=== PATIENT | male | born 1995 | race American Indian/Alaskan Native ===

== ENCOUNTER 2018-08-09 17:12 | Emergency (ER) | payer SELFPAY ==
[2018-08-09 18:55] LABS: Hematocrit 45.4 % (35.5-45.6); Hemoglobin 15.3 gm/dl (11.8-15.2); Mean Corpuscular HGB Conc 34 % (32-34); Mean Corpuscular Volume 88 fl (84-94); Platelet Count 237 K/mm3 (140-440); Red Blood Count 5.18 M/mm3 (3.65-5.03); Red Cell Distribution Width 13.6 % (13.2-15.2)
[2018-08-09 19:01] LABS: Amphetamine Screen,Urine PRESUMPTIVE NEGATIVE; Benzodiazepines Screen,Urine PRESUMPTIVE NEGATIVE; Cannabinoid Screen,Urine PRESUMPTIVE NEGATIVE; Cocaine Screen,Urine PRESUMPTIVE NEGATIVE; Methadone Screen,Urine PRESUMPTIVE NEGATIVE; Opiate Screen,Urine PRESUMPTIVE NEGATIVE
[2018-08-09 19:06] LABS: INR 0.9 (0.87-1.13)
[2018-08-09 19:17] LABS: BUN/Creatinine Ratio 11; Blood Urea Nitrogen 9 mg/dL (9-20); Calcium 9.4 mg/dL (8.4-10.2); Hemolysis Index 16
[2018-08-09] MEDS ORDERED: ATIVAN IV STA (22:13)
[2018-08-09] MEDS ORDERED: TORADOL IV ONE (22:13)
[2018-08-09] MEDS ORDERED: PEPCID IV ONE (22:13)
[2018-08-09] MEDS ORDERED: NACL 0.9% 1000 ML 1,000 ML IV ONE (22:13)
--- NOTE | 2018-08-09 22:14 | Emergency Department Report ---
ED Chest Pain HPI - General Chief Complaint: Chest Pain Stated Complaint: PALPS Time Seen by Provider: 08/09/18 20:48 Source: patient, EMS (ems notes not available at time of chart dictation), RN notes reviewed Mode of arrival: Stretcher Limitations: No Limitations - History of Present Illness Initial Comments: This is a 23-year-old gentleman, who is not known to this provider previously. The patient believes he may have a history of anxiety, but reports that he does not carry a formal diagnosis of anxiety per say. He does not take any long-term chronic prescription medications. Today, the patient presents to the ER with a complaint of central chest pressure, now resolved, shortness of breath, now resolved, feeling like his heart rate was "racing", and reporting that his Smart phone device/ fit bit, documented tachycardia, elevated heart rate, with rates in the 140s, 150s. This was earlier on today. This was right after he consumed some alcohol recreationally. Shortly after consuming the alcohol, he felt tingling on his bilateral fingertips, now resolved, and "it felt like my stomach was going to fall out." All of the symptoms are now basically resolved. He currently denies headache, neck pain, denies chest pain, denies current shortness of breath, denies abdominal pain, denies focal extremity weakness or numbness. He has no family history of cardiac disease that he is aware of, and he has no family history of pulmonary embolus or DVT. Furthermore, he denies a history of DVT or pulmonary embolus risk factors. His symptoms were intermittent, did not have any exacerbating or relieving factors, chest discomfort was described as tightness in nature, and he reports no radiation that he can recall. MD Complaint: chest pain, other -: Gradual Onset: other Pain Location: substernal, left chest, right chest Pain Radiation: none Severity scale (0 -10): 6 Quality: aching Consistency: now resolved Improves With: nothing Worsens With: nothing Treatments Prior to Arrival: nitroglycerin Aspirin use within the Past 7 Days: (0) No - Related Data On Oral Contraceptives: No Allergies Allergy/AdvReac Type Severity Reaction Status Date / Time No Known Allergies Allergy Unverified 08/09/18 18:41 Heart Score - HEART Score History: Slightly suspicious EKG: Normal Age: < 45 Risk factors: No known risk factors Troponin: < normal limit HEART Score: 0 - Critical Actions Critical Actions: 0-3 pts:0.9-1.7%risk of adverse cardiac event.Candidate for discharge ED Review of Systems ROS: Stated complaint: PALPS Other details as noted in HPI Constitutional: weakness. denies: fever, malaise Eyes: denies: vision change ENT: denies: epistaxis Respiratory: shortness of breath Cardiovascular: chest pain, palpitations Gastrointestinal: denies: vomiting Genitourinary: denies: urgency Musculoskeletal: denies: back pain Skin: denies: lesions Neurological: denies: headache Psychiatric: anxiety ED Past Medical Hx - Past Medical History Previous Medical History?: Yes Additional medical history: PVC - Surgical History Past Surgical History?: No - Social History Smoking Status: Current Every Day Smoker Substance Use Type: Alcohol ED Physical Exam - General Limitations: No Limitations General appearance: alert, anxious, obese - Head Head exam: Present: atraumatic, normocephalic - Eye Eye exam: Present: normal appearance, PERRL, EOMI, other (visual acuity intact to finger counting, color perception, reading at a close distance). Absent: nystagmus - ENT ENT exam: Present: normal exam, normal orophraynx, mucous membranes moist, normal external ear exam - Neck Neck exam: Present: normal inspection, full ROM. Absent: tenderness, meningismus - Respiratory Respiratory exam: Present: normal lung sounds bilaterally. Absent: respiratory distress - Cardiovascular Cardiovascular Exam: Present: normal rhythm, tachycardia, normal heart sounds. Absent: systolic murmur, diastolic murmur, rubs, gallop - GI/Abdominal GI/Abdominal exam: Present: soft. Absent: distended, tenderness, guarding, rebound, rigid, pulsatile mass - Rectal Rectal exam: Present: deferred - Extremities Exam Extremities exam: Present: normal inspection - Back Exam Back exam: Present: normal inspection, full ROM. Absent: paraspinal tenderness, vertebral tenderness - Neurological Exam Neurological exam: Present: alert, oriented X3, CN II-XII intact, normal gait, other (Extraocular movements intact. Tongue midline. No facial droop. Facial sensation intact to light touch in the V1, V2, V3 distribution bilaterally. 5 and 5 strength in 4 extremities.. Sensation is intact to light touch in 4 extremities.). Absent: motor sensory deficit - Psychiatric Psychiatric exam: Present: anxious - Skin Skin exam: Present: warm, dry, intact, normal color. Absent: rash ED Course Vital Signs 08/09/18 08/09/18 08/09/18 18:08 18:15 18:20 Temperature Pulse Rate 110 H 97 H 108 H Respiratory 16 14 Rate Blood Pressure 118/76 127/82 127/82 Blood Pressure [Right] O2 Sat by Pulse 97 96 Oximetry 08/09/18 08/09/18 08/09/18 18:30 18:31 19:00 Temperature Pulse Rate 104 H 100 H 96 H Respiratory 13 20 13 Rate Blood Pressure 127/82 127/82 130/71 Blood Pressure [Right] O2 Sat by Pulse 96 97 99 Oximetry 08/09/18 08/09/18 08/09/18 19:18 19:24 19:31 Temperature Pulse Rate 100 H 100 H Respiratory 20 22 Rate Blood Pressure 127/82 116/56 Blood Pressure [Right] O2 Sat by Pulse 98 97 97 Oximetry 08/09/18 08/09/18 08/09/18 19:46 20:00 20:31 Temperature Pulse Rate 98 H 95 H 85 Respiratory 13 18 14 Rate Blood Pressure 107/72 116/56 Blood Pressure 116/56 [Right] O2 Sat by Pulse 98 96 100 Oximetry 08/09/18 08/09/18 08/09/18 21:00 21:31 22:37 Temperature Pulse Rate 82 82 83 Respiratory 20 21 18 Rate Blood Pressure 104/57 104/57 125/79 Blood Pressure [Right] O2 Sat by Pulse 100 100 95 Oximetry 08/09/18 08/09/18 08/09/18 22:46 22:58 23:31 Temperature 98.6 F Pulse Rate 81 83 Respiratory 18 16 13 Rate Blood Pressure 104/57 Blood Pressure 125/79 [Right] O2 Sat by Pulse 95 98 Oximetry 08/10/18 08/10/18 00:01 00:31 Temperature Pulse Rate 86 77 Respiratory 11 L 24 Rate Blood Pressure 119/74 117/84 Blood Pressure [Right] O2 Sat by Pulse 100 98 Oximetry MIKE score - Mike Score Age > 65: (0) No Aspirin use within the Past 7 Days: (0) No 3 or more CAD Risk Factors: (0) No 2 or more Angina events in past 24 hrs: (0) No Known CAD with more than 50% Stenosis: (0) No Elevated Cardiac Markers: (0) No ST Deviation Greater than 0.5mm: (0) No MIKE Score: 0 ED Medical Decision Making - Lab Data Result diagrams: 08/09/18 18:38 08/09/18 18:38 Vital Signs 08/09/18 08/09/18 08/09/18 18:08 18:15 18:20 Temperature Pulse Rate 110 H 97 H 108 H Respiratory 16 14 Rate Blood Pressure 118/76 127/82 127/82 Blood Pressure [Right] O2 Sat by Pulse 97 96 Oximetry 08/09/18 08/09/18 08/09/18 18:30 18:31 19:00 Temperature Pulse Rate 104 H 100 H 96 H Respiratory 13 20 13 Rate Blood Pressure 127/82 127/82 130/71 Blood Pressure [Right] O2 Sat by Pulse 96 97 99 Oximetry 08/09/18 08/09/18 08/09/18 19:18 19:24 19:31 Temperature Pulse Rate 100 H 100 H Respiratory 20 22 Rate Blood Pressure 127/82 116/56 Blood Pressure [Right] O2 Sat by Pulse 98 97 97 Oximetry 08/09/18 08/09/18 08/09/18 19:46 20:00 20:31 Temperature Pulse Rate 98 H 95 H 85 Respiratory 13 18 14 Rate Blood Pressure 107/72 116/56 Blood Pressure 116/56 [Right] O2 Sat by Pulse 98 96 100 Oximetry 08/09/18 08/09/18 08/09/18 21:00 21:31 22:37 Temperature Pulse Rate 82 82 83 Respiratory 20 21 18 Rate Blood Pressure 104/57 104/57 125/79 Blood Pressure [Right] O2 Sat by Pulse 100 100 95 Oximetry 08/09/18 08/09/18 08/09/18 22:46 22:58 23:31 Temperature 98.6 F Pulse Rate 81 83 Respiratory 18 16 13 Rate Blood Pressure 104/57 Blood Pressure 125/79 [Right] O2 Sat by Pulse 95 98 Oximetry 08/10/18 08/10/18 00:01 00:31 Temperature Pulse Rate 86 77 Respiratory 11 L 24 Rate Blood Pressure 119/74 117/84 Blood Pressure [Right] O2 Sat by Pulse 100 98 Oximetry Lab Results 08/09/18 08/09/18 08/09/18 Range/Units 18:29 18:38 18:38 WBC 7.1 (4.5-11.0) K/mm3 RBC 5.18 H (3.65-5.03) M/mm3 Hgb 15.3 H (11.8-15.2) gm/dl Hct 45.4 (35.5-45.6) % MCV 88 (84-94) fl MCH 30 (28-32) pg MCHC 34 (32-34) % RDW 13.6 (13.2-15.2) % Plt Count 237 (140-440) K/mm3 PT 12.7 (12.2-14.9) Sec. INR 0.90 (0.87-1.13) D-Dimer (0-234) ng/mlDDU Sodium (137-145) mmol/L Potassium (3.6-5.0) mmol/L Chloride (98-107) mmol/L Carbon Dioxide (22-30) mmol/L Anion Gap mmol/L BUN (9-20) mg/dL Creatinine (0.8-1.5) mg/dL Estimated GFR ml/min BUN/Creatinine Ratio % Glucose (75-100) mg/dL Calcium (8.4-10.2) mg/dL Magnesium (1.7-2.3) mg/dL Total Creatine Kinase (55-170) units/L Troponin T (0.00-0.029) ng/mL TSH (0.270-4.200) mlU/mL Urine Opiates Screen Presumptive negative Urine Methadone Screen Presumptive negative Ur Barbiturates Screen Presumptive negative Ur Phencyclidine Scrn Presumptive negative Ur Amphetamines Screen Presumptive negative U Benzodiazepines Scrn Presumptive negative Urine Cocaine Screen Presumptive negative U Marijuana (THC) Screen Presumptive negative Drugs of Abuse Note Disclamer 08/09/18 08/09/18 08/09/18 Range/Units 18:38 18:38 18:38 WBC (4.5-11.0) K/mm3 RBC (3.65-5.03) M/mm3 Hgb (11.8-15.2) gm/dl Hct (35.5-45.6) % MCV (84-94) fl MCH (28-32) pg MCHC (32-34) % RDW (13.2-15.2) % Plt Count (140-440) K/mm3 PT (12.2-14.9) Sec. INR (0.87-1.13) D-Dimer 135.00 (0-234) ng/mlDDU Sodium 137 (137-145) mmol/L Potassium 3.7 (3.6-5.0) mmol/L Chloride 99.1 (98-107) mmol/L Carbon Dioxide 20 L (22-30) mmol/L Anion Gap 22 mmol/L BUN 9 (9-20) mg/dL Creatinine 0.8 (0.8-1.5) mg/dL Estimated GFR > 60 ml/min BUN/Creatinine Ratio 11 % Glucose 144 H (75-100) mg/dL Calcium 9.4 (8.4-10.2) mg/dL Magnesium 2.20 (1.7-2.3) mg/dL Total Creatine Kinase 87 (55-170) units/L Troponin T (0.00-0.029) ng/mL TSH 1.910 (0.270-4.200) mlU/mL Urine Opiates Screen Urine Methadone Screen Ur Barbiturates Screen Ur Phencyclidine Scrn Ur Amphetamines Screen U Benzodiazepines Scrn Urine Cocaine Screen U Marijuana (THC) Screen Drugs of Abuse Note 08/09/18 08/09/18 Range/Units 18:38 22:18 WBC (4.5-11.0) K/mm3 RBC (3.65-5.03) M/mm3 Hgb (11.8-15.2) gm/dl Hct (35.5-45.6) % MCV (84-94) fl MCH (28-32) pg MCHC (32-34) % RDW (13.2-15.2) % Plt Count (140-440) K/mm3 PT (12.2-14.9) Sec. INR (0.87-1.13) D-Dimer (0-234) ng/mlDDU Sodium (137-145) mmol/L Potassium (3.6-5.0) mmol/L Chloride (98-107) mmol/L Carbon Dioxide (22-30) mmol/L Anion Gap mmol/L BUN (9-20) mg/dL Creatinine (0.8-1.5) mg/dL Estimated GFR ml/min BUN/Creatinine Ratio % Glucose (75-100) mg/dL Calcium (8.4-10.2) mg/dL Magnesium (1.7-2.3) mg/dL Total Creatine Kinase (55-170) units/L Troponin T < 0.010 < 0.010 (0.00-0.029) ng/mL TSH (0.270-4.200) mlU/mL Urine Opiates Screen Urine Methadone Screen Ur Barbiturates Screen Ur Phencyclidine Scrn Ur Amphetamines Screen U Benzodiazepines Scrn Urine Cocaine Screen U Marijuana (THC) Screen Drugs of Abuse Note - EKG Data -: EKG Interpreted by Me EKG shows normal: sinus rhythm Rate: normal - EKG Data When compared to previous EKG there are: previous EKG unavailable 08/10/18 00:53 EKG #1 shows sinus, 99 bpm, normal axis, normal intervals, premature ventricular contraction, nonspecific ST abnormalities, likely early repolarization, abnormal EKG, borderline high left ventricular voltage, this is not consistent with an ST elevation myocardial infarction EKG #2 appears to be unchanged. - Radiology Data Radiology results: report reviewed, image reviewed X-ray the chest is negative for acute disease. - Medical Decision Making Differential diagnosis, including not limited to: GERD, gastritis, anxiety, costochondritis, pericarditis, myocarditis, acute coronary syndrome, pneumonia, pulmonary embolus Assessment and plan: 23-year-old gentleman, clinically sober at this time, glasscow coma scale of 15, walking with a steady gait, pulmonary and lesser DVT risk factors, low risk by well's criteria, tachycardia resolved, not currently hypoxic, d-dimer negative, low risk by heart score, low risk by MIKE score, troponin negative 2, EKG unchanged 2, at low risk for major adverse cardiac event. Patient feels improved, and has been observed in the emergency room for many hours without clinical decomposition. Explained to the patient that he is at low risk for major adverse cardiac event. Recommended outpatient follow-up with cardiology for report of chest tightness, shortness of breath and tachycardia. Patient verbalizes underst anding. Patient endorses that he is reliable to follow-up as an outpatient. Through shared decision making, patient and myself agreed to discharge the patient, with close outpatient cardiology follow-up. Critical care attestation.: If time is entered above; I have spent that time in minutes in the direct care of this critically ill patient, excluding procedure time. ED Disposition Clinical Impression: History of chest pain, History of tachycardia Disposition: TO HOME OR SELFCARE Is pt being admited?: No Does the pt Need Aspirin: No Condition: Stable Instructions: Supraventricular Tachycardia (ED), Chest Pain (ED) Additional Instructions: Discontinue consumption of stimulants, caffeinated beverages, sugary drinks. Minimize interaction on cellular phones, and decrease screen time as much as possible. Make certain to get at least 7-8 hours of good quality on interrupted sleep per night. Follow up with an outpatient edge stripper within the next week. Return to the emergency room right away with you pain, worsened pain, migration of pain, projectile vomiting, change in mental status, confusion, inability to tolerate liquid feeds, new, worsening or different symptoms. Referrals: ÁNGEL LUCIANO MD [Staff Physician] - 3-5 Days EILEEN HOWELL MD [Staff Physician] - 3-5 Days [facility] [Provider Group] - 3-5 Days [facility] MINDY Silva [Provider Group] - 3-5 Days
--- NOTE | 2018-08-09 23:09 | XRay Report ---
PROCEDURE: XR CHEST ROUTINE 2V TECHNIQUE: PA and lateral HISTORY: cp sob COMPARISONS: None FINDINGS: Trachea midline. Heart size normal. No pneumothorax. No sizable effusion. No acute airspace disease. No acute bony abnormality IMPRESSION: No active pulmonary disease.. This document is electronically signed by Toni Welch MD., August 09 2018 11:07:12 PM ET
[2018-08-10 01:07] VITALS: BP 122/61
== END 2018-08-10 01:22 | disposition home or self-care (01) ==
LOC: ED 17:12
DX: R07.89 Other chest pain (principal); R00.0 Tachycardia, unspecified
CPT/HCPCS: 36415; 71046; 80048; 80307; 82550; 83735; 84443; 84484; 85027; 85379; 85610; 93005; 93010; 96374; 96375; 99285; J1885; J2060; J7030

== ENCOUNTER 2018-08-11 11:10 | Emergency (ER) | payer SELFPAY ==
[2018-08-11] MEDS ORDERED: NACL 0.9% 1000 ML 1,000 ML IV ONE (11:58)
[2018-08-11] MEDS ORDERED: PEPCID IV ONE (11:58)
[2018-08-11 12:18] LABS: Basophils % (Auto) 0.3 % (0.0-1.8); Eosinophils # (Auto) 0.2 K/mm3 (0.0-0.4); Eosinophils % (Auto) 2.8 % (0.0-4.3); Hematocrit 43.3 % (35.5-45.6); Hemoglobin 14.8 gm/dl (11.8-15.2); Lymphocytes # (Auto) 1.3 K/mm3 (1.2-5.4); Lymphocytes % (Auto) 22.8 % (13.4-35.0); Mean Corpuscular HGB Conc 34 % (32-34); Mean Corpuscular Volume 87 fl (84-94); Monocytes # (Auto) 0.5 K/mm3 (0.0-0.8); Monocytes % (Auto) 7.8 % (0.0-7.3); Platelet Count 225 K/mm3 (140-440); Red Blood Count 5.01 M/mm3 (3.65-5.03); Red Cell Distribution Width 13.4 % (13.2-15.2)
[2018-08-11 12:34] LABS: BUN/Creatinine Ratio 14; Blood Urea Nitrogen 11 mg/dL (9-20); Calcium 9.1 mg/dL (8.4-10.2); Hemolysis Index 8
--- NOTE | 2018-08-11 13:16 | Emergency Department Report ---
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 Patient states that he was here 2 days ago and had blood work done. Patient states he was given something for anxiety during that visit but feels as though he is not anxious and he doesn't think this is a cause of his palpitations. Patient states he walked down some stairs earlier today and his heart rate increased to 140. Patient states he felt palpitations and fluttering in his chest and felt near syncopal. Patient states he felt some tightness in his chest at that time as well. Patient states he took some deep breaths and started to feel slightly improved however because symptoms did not completely resolve he came to the emergency department. Patient denies any illicit drug use nausea vomiting diarrhea fevers chills, cold or congestion. - Related Data Previous Rx's Medication Instructions Recorded Last Taken Type Amlodipine Besylate [Norvasc] 2.5 mg PO DAILY #15 tablet 08/11/18 Unknown Rx Allergies Allergy/AdvReac Type Severity Reaction Status Date / Time No Known Allergies Allergy Verified 08/11/18 11:11 ED Review of Systems ROS: Stated complaint: RAPID HEART RATE Other details as noted in HPI Comment: All other systems reviewed and negative ED Past Medical Hx - Past Medical History Previous Medical History?: Yes Additional medical history: PVC - Surgical History Past Surgical History?: No - Social History Smoking Status: Current Every Day Smoker Substance Use Type: None - Medications Home Medications: Home Medications Medication Instructions Recorded Confirmed Last Taken Type Amlodipine Besylate [Norvasc] 2.5 mg PO DAILY #15 tablet 08/11/18 Unknown Rx ED Physical Exam - General Limitations: No Limitations General appearance: alert, in no apparent distress - Head Head exam: Present: atraumatic, normocephalic - Eye Eye exam: Present: normal appearance - ENT ENT exam: Present: normal exam, normal orophraynx, mucous membranes moist. Absent: mucous membranes dry - Neck Neck exam: Present: normal inspection - Respiratory Respiratory exam: Present: normal lung sounds bilaterally. Absent: respiratory distress, wheezes, rales, rhonchi, stridor, chest wall tenderness - Cardiovascular Cardiovascular Exam: Present: regular rate, normal rhythm, normal heart sounds. Absent: systolic murmur, diastolic murmur, rubs, gallop - GI/Abdominal GI/Abdominal exam: Present: soft, normal bowel sounds. Absent: distended, tenderness, guarding, rebound - Rectal Rectal exam: Present: deferred - Extremities Exam Extremities exam: Present: normal inspection - Back Exam Back exam: Present: normal inspection - Neurological Exam Neurological exam: Present: alert, oriented X3 - Psychiatric Psychiatric exam: Present: normal affect, normal mood - Skin Skin exam: Present: warm, dry, intact, normal color. Absent: rash ED Course Vital Signs 08/11/18 11:33 Temperature 98.6 F Pulse Rate 114 H Respiratory 16 Rate Blood Pressure 110/80 O2 Sat by Pulse 100 Oximetry ED Medical Decision Making - Lab Data Result diagrams: 08/11/18 12:08 08/11/18 12:08 Lab Results 08/11/18 08/11/18 Range/Units 12:08 12:08 WBC 5.8 (4.5-11.0) K/mm3 RBC 5.01 (3.65-5.03) M/mm3 Hgb 14.8 (11.8-15.2) gm/dl Hct 43.3 (35.5-45.6) % MCV 87 (84-94) fl MCH 29 (28-32) pg MCHC 34 (32-34) % RDW 13.4 (13.2-15.2) % Plt Count 225 (140-440) K/mm3 Lymph % (Auto) 22.8 (13.4-35.0) % [place] % (Auto) 7.8 H (0.0-7.3) % Eos % (Auto) 2.8 (0.0-4.3) % Baso % (Auto) 0.3 (0.0-1.8) % Lymph # 1.3 (1.2-5.4) K/mm3 [place] # 0.5 (0.0-0.8) K/mm3 Eos # 0.2 (0.0-0.4) K/mm3 Baso # 0.0 (0.0-0.1) K/mm3 Seg Neutrophils % 66.3 (40.0-70.0) % Seg Neutrophils # 3.8 (1.8-7.7) K/mm3 Sodium 138 (137-145) mmol/L Potassium 4.0 (3.6-5.0) mmol/L Chloride 103.8 (98-107) mmol/L Carbon Dioxide 23 (22-30) mmol/L Anion Gap 15 mmol/L BUN 11 (9-20) mg/dL Creatinine 0.8 (0.8-1.5) mg/dL Estimated GFR > 60 ml/min BUN/Creatinine Ratio 14 % Glucose 115 H (75-100) mg/dL Calcium 9.1 (8.4-10.2) mg/dL Troponin T < 0.010 (0.00-0.029) ng/mL Patient's d-dimer was 135 on his previous visit which is within normal limits. Patient had 2 negative troponins at that time as well. - EKG Data -: EKG Interpreted by Wi - EKG Data 08/11/18 13:13 EKG shows sinus rhythm a rate of 94. [place] and intervals are within normal limits. Patient has occasional PVC. Patient has no ST segment elevations or depressions. T waves are not inverted. Time of interpretation is 1125 - Radiology Data Radiology results: report reviewed (chest x-ray from 2 days ago was reviewed and is within normal limits) - Medical Decision Making Patient's 2 EKGs from his previous visit show PVCs with a normal rate. Patient EKGs shows the same today. Patient likely is starting an increased amount of PVCs. Patient to be given IV hydration patient be referred back to cardiology. Patient states that he's has been on beta blockers in the past with dropped his blood pressure significantly. Placed the patient on a low-dose Norvasc. Critical care attestation.: If time is entered above; I have spent that time in minutes in the direct care of this critically ill patient, excluding procedure time. ED Disposition Clinical Impression: PVC (premature ventricular contraction), Palpitations Disposition: - TO HOME OR SELFCARE Is pt being admited?: No Does the pt Need Aspirin: No Condition: Stable Instructions: Palpitations (ED) Prescriptions: Amlodipine Besylate [Norvasc] 2.5 mg PO DAILY #15 tablet Referrals: MOOK GAINES MD [Staff Physician] - 3-5 Days Time of Disposition: 13:16
[2018-08-11 14:31] VITALS: BP 121/96
== END 2018-08-11 14:32 | disposition home or self-care (01) ==
LOC: ED 11:10
DX: I49.3 Ventricular premature depolarization (principal); F17.200 Nicotine dependence, unspecified, uncomplicated
CPT/HCPCS: 36415; 80048; 84484; 85025; 93005; 93010; 96374; 99283; J7030

== ENCOUNTER 2019-01-09 11:13 | Emergency (ER) | payer SELFPAY ==
--- NOTE | 2019-01-09 11:48 | Emergency Department Report ---
Blank Doc - Documentation Documentation: 23-year-old male that presents with cough and heart palpation. Patient stated gets chest pain and "lung pain" during cough. This initial assessment/diagnostic orders/clinical plan/treatment(s) is/are subject to change based on patient's health status, clinical progression and re- assessment by fellow clinical providers in the ED. Further treatment and workup at subsequent clinical providers discretion. Patient/guardians urged not to elope from the ED as their condition may be serious if not clinically assessed and managed. Initial orders include: 1- Patient sent to [facility] for further evaluation and treatment 2- EKG 3- CXR
[2019-01-09 11:54] VITALS: BP 153/105
--- NOTE | 2019-01-09 13:25 | XRay Report ---
CHEST 2 VIEWS INDICATION / CLINICAL INFORMATION: cough/cp. COMPARISON: 08/09/2018 FINDINGS: SUPPORT DEVICES: None. HEART / MEDIASTINUM: No significant abnormality. LUNGS / PLEURA: No significant pulmonary or pleural abnormality. .No pneumothorax. ADDITIONAL FINDINGS: No significant additional findings. IMPRESSION: 1. No acute findings. Signer Name: Jeff Carey MD Signed: 01/09/2019 1:20 PM Workstation Name: [id number]
--- NOTE | 2019-01-09 13:34 | Emergency Department Report ---
ED Palpitations HPI - General Chief Complaint: Arrhythmia/Palpitations Stated Complaint: HEART PALPITATION Time Seen by Provider: 01/09/19 11:46 Source: patient Mode of arrival: Ambulatory Limitations: No Limitations - History of Present Illness Initial Comments: Patient is 23 years old male with no significant past medical history. 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 Patient stated that he had this issue before one time and they found that his lactic acid was high. Patient denied any chest pain or shortness of breath. He also denies any weakness numbness or tingling sensation. MD Complaint: rapid heart beat, "heart racing", palpitations -: Sudden Context: occured during rest Associated Symptoms: denies other symptoms - Related Data Previous Rx's Medication Instructions Recorded Last Taken Type Amlodipine Besylate [Norvasc] 2.5 mg PO DAILY #15 tablet 08/11/18 Unknown Rx Allergies Allergy/AdvReac Type Severity Reaction Status Date / Time No Known Allergies Allergy Verified 08/11/18 11:11 ED Review of Systems ROS: Stated complaint: HEART PALPITATION Other details as noted in HPI Comment: All other systems reviewed and negative Constitutional: denies: chills, fever ENT: denies: throat pain Respiratory: denies: cough, orthopnea Cardiovascular: palpitations. denies: chest pain Gastrointestinal: denies: abdominal pain, nausea, vomiting Genitourinary: denies: urgency, dysuria, frequency ED Past Medical Hx - Past Medical History Previous Medical History?: No Additional medical history: PVC - Surgical History Past Surgical History?: Yes Additional Surgical History: Spinal surgery - Social History Smoking Status: Never Smoker Substance Use Type: None - Medications Home Medications: Home Medications Medication Instructions Recorded Confirmed Last Taken Type Amlodipine Besylate [Norvasc] 2.5 mg PO DAILY #15 tablet 08/11/18 Unknown Rx ED Physical Exam - General Limitations: No Limitations General appearance: alert, in no apparent distress - Head Head exam: Present: atraumatic, normocephalic, normal inspection - Eye Eye exam: Present: normal appearance, PERRL - ENT ENT exam: Present: normal exam, normal orophraynx, mucous membranes dry - Neck Neck exam: Present: normal inspection, full ROM. Absent: tenderness, meningismus, lymphadenopathy, thyromegaly - Respiratory Respiratory exam: Present: normal lung sounds bilaterally - Cardiovascular Cardiovascular Exam: Present: regular rate, normal rhythm, normal heart sounds - GI/Abdominal GI/Abdominal exam: Present: soft, normal bowel sounds. Absent: distended, tenderness, guarding, rebound, rigid, organomegaly, mass, bruit, pulsatile mass, hernia - Extremities Exam Extremities exam: Present: normal inspection, full ROM, normal capillary refill. Absent: pedal edema, calf tenderness - Back Exam Back exam: Present: normal inspection, full ROM. Absent: CVA tenderness (R), CVA tenderness (L), muscle spasm, paraspinal tenderness, vertebral tenderness - Neurological Exam Neurological exam: Present: alert, oriented X3, CN II-XII intact, normal gait, reflexes normal - Skin Skin exam: Present: warm, intact, normal color ED Course Vital Signs 01/09/19 11:48 Temperature 98.7 F Pulse Rate 78 Respiratory 18 Rate Blood Pressure 153/105 O2 Sat by Pulse 100 Oximetry ED Medical Decision Making - Lab Data Result diagrams: 01/09/19 13:38 01/09/19 13:38 - EKG Data -: EKG Interpreted by Id EKG shows normal: sinus rhythm Rate: normal - EKG Data Interpretation: no acute changes - Radiology Data Radiology results: report reviewed - Medical Decision Making Patient is 23 years old male with no significant past medical history. 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 Patient stated that he had this issue before one time and they found that his lactic acid was high. Patient denied any chest pain or shortness of breath. He also denies any weakness numbness or tingling sensation. Patient lactic acid came back at 3.4. Patient received 1 L of normal saline. Patient stated that he is feeling much better lactic acid improved significantly and now is 0.9. Patient stated that he is not drinking a lot of of fluids. Patient advised to follow-up with his primary care physician in the next 2-3 days and to return to the ER if symptoms are not improved. Critical care attestation.: If time is entered above; I have spent that time in minutes in the direct care of this critically ill patient, excluding procedure time. ED Disposition Clinical Impression: Palpitations, Dehydration after exertion Disposition: -01 TO HOME OR SELFCARE Is pt being admited?: No Condition: Stable Instructions: Palpitations (ED), Dehydration (ED) Referrals: PRIMARY CARE, [Primary Care Provider] - 3-5 Days Forms: Work/School Release Form(ED)
[2019-01-09 13:55] LABS: Basophils % (Auto) 0.6 % (0.0-1.8); Eosinophils # (Auto) 0.2 K/mm3 (0.0-0.4); Eosinophils % (Auto) 2.6 % (0.0-4.3); Hematocrit 43.1 % (35.5-45.6); Hemoglobin 14.3 gm/dl (11.8-15.2); Lymphocytes # (Auto) 1.9 K/mm3 (1.2-5.4); Lymphocytes % (Auto) 28.9 % (13.4-35.0); Mean Corpuscular HGB Conc 33 % (32-34); Mean Corpuscular Volume 85 fl (84-94); Monocytes # (Auto) 0.3 K/mm3 (0.0-0.8); Monocytes % (Auto) 5.1 % (0.0-7.3); Platelet Count 247 K/mm3 (140-440); Red Blood Count 5.05 M/mm3 (3.65-5.03); Red Cell Distribution Width 13.9 % (13.2-15.2)
[2019-01-09 14:23] LABS: Bilirubin,Urine NEG (Negative); Blood,Urine NEG (Negative); Color,Urine Yellow (Yellow); Mucus,Urine FEW /HPF; Urobilinogen,Urine < 2.0 mg/dL (<2.0); WBC,Urine < 1.0 /HPF (0.0-6.0)
[2019-01-09 14:28] LABS: Alanine Aminotransferase 57 units/L (7-56); Albumin 4.9 g/dL (3.9-5); BUN/Creatinine Ratio 13; Blood Urea Nitrogen 12 mg/dL (9-20); Calcium 9.5 mg/dL (8.4-10.2); Hemolysis Index 4
[2019-01-09 14:31] LABS: Amphetamine Screen,Urine PRESUMPTIVE NEGATIVE; Benzodiazepines Screen,Urine PRESUMPTIVE NEGATIVE; Cannabinoid Screen,Urine PRESUMPTIVE NEGATIVE; Cocaine Screen,Urine PRESUMPTIVE NEGATIVE; Methadone Screen,Urine PRESUMPTIVE NEGATIVE; Opiate Screen,Urine PRESUMPTIVE NEGATIVE
[2019-01-09 14:35] LABS: Free T4 (Free Thyroxine) 0.94 ng/dL (0.76-1.46)
[2019-01-09] MEDS ORDERED: NACL 0.9% 1000 ML 1,000 ML IV ONE (15:07)
[2019-01-09] MEDS ORDERED: NACL 0.9% 1000 ML 1,000 ML ONE (15:10)
[2019-01-09] MEDS ORDERED: TORADOL IV ONE (15:39)
== END 2019-01-09 17:00 | disposition home or self-care (01) ==
LOC: ED 11:13
DX: R00.2 Palpitations (principal); E86.0 Dehydration; Z98.890 Other specified postprocedural states; Z79.899 Other long term (current) drug therapy; Z86.79 Personal history of other diseases of the circulatory system
CPT/HCPCS: 36415; 71046; 80053; 80307; 81001; 82140; 84439; 84443; 84484; 85025; 93005; 93010; 96361; 96374; 99284; J1885; J7030